=== PATIENT | male | born 1985 | race Caucasian/White ===

== ENCOUNTER 2016-09-30 09:32 | Emergency (ER) | payer BC ==
[~2016-09-30] VITALS: Ht 172.7 cm; Wt 90.9 kg
[2016-09-30 09:36] VITALS: TEMP 37.2; Ht 172.7 cm; Wt 90.9 kg
[2016-09-30] MEDS ORDERED: AMPICILLIN/SULBACTAM SOD INJ 3,000 MG in SODIUM CHLORIDE 0.9% 100ML 100 ML IV STA (10:10)
[2016-09-30] MEDS ORDERED: DiphenhydrAMINE HCL 50 MG/ML VIAL IV STA (10:26)
[2016-09-30] MEDS ORDERED: METHYLPREDNISOLONE 125 MG VIAL IV STA (10:26)
[2016-09-30 10:27] LABS: BASO % 0.8 %; BASO ABS # 0.06 K/uL (0-0.2); COMPLETE YES; EOS % 0.8 %; HEMATOCRIT 47.6 % (42-52); IG% 0.3 %; LYMPH % 22.1 %; MEAN CORPUSCULAR HEMOGLOBIN 29.9 pg (25-34); MEAN CORPUSCULAR HGB CONC 33.6 g/dl (32-36); MEAN PLATELET VOLUME 11.7 fL (7.4-10.4); MONO % 9.3 %; NEUT % 66.7 %; PLATELET COUNT 195 K/uL (130-400); RED BLOOD COUNT 5.35 M/uL (4.7-6.1); WHITE BLOOD COUNT 7.23 K/uL (4.8-10.8)
[2016-09-30] MEDS ORDERED: DiphenhydrAMINE HCL 50 MG/ML VIAL ONE (10:27)
[2016-09-30] MEDS ORDERED: METHYLPREDNISOLONE 125 MG VIAL ONE (10:28)
--- NOTE | 2016-09-30 10:28 | EMERGENCY ROOM VISIT NOTE ---
History Report prepared by Scribe: Kimberly Lester Under the Supervision of: Dr. Radha Enriquez D.O. First contact with patient: 09:49 Chief Complaint: NECK PAIN Stated Complaint: SWOLLEN TONGUE,NECK/JAW PAIN,REFERRED History of Present Illness The patient is a 31 year old male who presents to the Emergency Room with complaints of persistent neck, tongue and right sided facial swelling that started this morning upon waking. He states he woke up with his tongue, the right side of his face and neck feeling swollen and "tight". He rates his discomfort as a 3.5/10. He reports overnight he experienced "night sweats" and thought he may have had a fever, though he is afebrile here in the ED. He also complains of a rash on his face stating "whenever I'm sick, I get this". He reports he called his primary care doctors office this morning and was referred to the ED for further evaluation. The patient denies any history of dental infections. He admits his ears feel "a little weird". He denies any recent abdominal pain. He complains of increased and dark colored urine. Source of History: patient Onset: this morning upon waking Position: head (right sided face), tongue, neck Symptom Intensity: 3.5/10 Quality: other (swelling and "tightness") Timing: other (persistent) Associated Symptoms: + diaphoresis, + urinary symptoms (increased urination , dark colored urine), + rash (rash on face), No fevers, No abdominal pain Review of Systems See HPI for pertinent positives & negatives. A total of 10 systems reviewed and were otherwise negative. Past Medical & Surgical Medical Problems: (1) No significant past medical history Family History No significant family history stated. Social History Smoking Status: Never Smoker Smokeless Tobacco Use: No Alcohol Use: occasionally Drug Use: none Marital Status: Housing Status: lives with family Occupation Status: employed Current/Historical Medications No Active Prescriptions or Reported Meds Allergies Coded Allergies: No Known Allergies (Unverified , 09/13/15) Physical Exam Vital Signs Date Time Temp Pulse Resp B/P (MAP) Pulse Ox O2 Delivery O2 Flow Rate FiO2 09/30/16 10:59 93 16 155/93 99 Room Air 09/30/16 10:56 86 09/30/16 10:34 Room Air 7/29/17 09:36 37.2 70 16 130/79 96 Room Air Physical Exam General: The patient has a muffled "hot potato" voice and significant difficulty swallowing. HEENT: Head - normocephalic and atraumatic Pupils are equal, round, and reactive to light. Extraocular eye muscles are intact, and sclera are anicteric. Nose - moist nasal mucosa without discharge. Mouth - moist buccal mucosa. Significant edema to the right floor of the mouth, elevation of the right tongue. There is moderate pain with palpation underneath the tongue on the right. There is no tonsillar exudate or edema noted. Neck: Significant fullness in right submental region, anterior cervical lymphadenopathy. Supple; no JVD, nuchal rigidity. Heart: Tachycardic heart rate, regular rhythm. There is a normal S1 and S2 with no murmurs, clicks, or gallops appreciated. Lungs: Clear to auscultation bilaterally with no wheezes, rales, or rhonchi. Abdomen: Soft, completely nontender, nondistended, with good bowel sounds. There are no palpable pulsatile masses or hepatosplenomegaly. There is no guarding, rigidity, or rebound noted. Extremities: No evidence of cyanosis, clubbing, or edema. There are easily palpable peripheral pulses. Skin: Slight papular rash over the right side of the face and over the right nasolabial fold and mid forehead. Warm and dry with good turgor. Medical Decision & Procedures ER Provider Diagnostic Interpretation: Radiology results as stated below per my review and the radiologist's interpretation: CT OF THE NECK WITH CONTRAST CLINICAL HISTORY: Swollen tongue. Neck/jaw pain. Evaluate for Abdiel's angina. COMPARISON STUDY: No previous studies for comparison. TECHNIQUE: Axial images of the neck were obtained following intravenous injection of 93 cc Optiray 320 IV. FINDINGS: Visualized portions of the intracranial contents are unremarkable. Major vasculature of the neck is patent. No mucosal lesions are identified although these may be occult by CT. There is no fluid collection within the neck to suggest an abscess. The epiglottis is normal. Airway is patent. Lung apices are clear. Visualized skeletal structures are unremarkable. Mastoid air cells are clear. Visualized portions of the sinuses are clear. No periapical dental abscess is identified by CT. There is no soft tissue gas. The parotid and submandibular glands are unremarkable. IMPRESSION: No significant abnormality within the neck by CT. No abscess. Normal epiglottis. Patent airway. Electronically signed by: Esa Arciniega M.D. 09/30/2016 10:59 AM Laboratory Results 09/30/16 10:00 Red Blood Count 5.35, Mean Corpuscular Volume 89.0, Mean Corpuscular Hemoglobin 29.9, Mean Corpuscular Hemoglobin Concent 33.6, Mean Platelet Volume 11.7, Neutrophils (%) (Auto) 66.7, Lymphocytes (%) (Auto) 22.1, Monocytes (%) (Auto) 9.3, Eosinophils (%) (Auto) 0.8, Basophils (%) (Auto) 0.8, Neutrophils # (Auto) 4.82, Lymphocytes # (Auto) 1.60, Monocytes # (Auto) 0.67, Eosinophils # (Auto) 0.06, Basophils # (Auto) 0.06 09/30/16 10:00 Test 09/30/16 10:00 09/30/16 10:22 09/30/16 10:24 09/30/16 10:28 White Blood Count 7.23 K/uL (4.8-10.8) Red Blood Count 5.35 M/uL (4.7-6.1) Hemoglobin 16.0 g/dL (14.0-18.0) Hematocrit 47.6 % (42-52) Mean Corpuscular Volume 89.0 fL (80-100) Mean Corpuscular Hemoglobin 29.9 pg (25-34) Mean Corpuscular Hemoglobin Concent 33.6 g/dl (32-36) Platelet Count 195 K/uL (130-400) Mean Platelet Volume 11.7 fL (7.4-10.4) Neutrophils (%) (Auto) 66.7 % Lymphocytes (%) (Auto) 22.1 % Monocytes (%) (Auto) 9.3 % Eosinophils (%) (Auto) 0.8 % Basophils (%) (Auto) 0.8 % Neutrophils # (Auto) 4.82 K/uL (1.4-6.5) Lymphocytes # (Auto) 1.60 K/uL (1.2-3.4) Monocytes # (Auto) 0.67 K/uL (0.11-0.59) Eosinophils # (Auto) 0.06 K/uL (0-0.5) Basophils # (Auto) 0.06 K/uL (0-0.2) RDW Standard Deviation 46.2 fL (36.4-46.3) RDW Coefficient of Variation 14.2 % (11.5-14.5) Immature Granulocyte % (Auto) 0.3 % Immature Granulocyte # (Auto) 0.02 K/uL (0.00-0.02) Prothrombin Time 10.6 SECONDS (9.0-12.0) Prothromb Time International Ratio 1.0 (0.9-1.1) Activated Partial Thromboplast Time 25.7 SECONDS (21.0-31.0) Partial Thromboplastin Ratio 1.0 Est Creatinine Clear Calc Drug Dose 99.4 ml/min Estimated GFR () 94.1 Estimated GFR (Non- 81.2 BUN/Creatinine Ratio 10.3 (10-20) Calcium Level 8.8 mg/dl (8.5-10.1) Total Bilirubin 0.6 mg/dl (0.2-1) Aspartate Amino Transf (AST/SGOT) 20 U/L (15-37) Alanine Aminotransferase (ALT/SGPT) 36 U/L (12-78) Alkaline Phosphatase 51 U/L (45-117) Total Protein 7.2 gm/dl (6.4-8.2) Albumin 4.0 gm/dl (3.4-5.0) Globulin 3.2 gm/dl (2.5-4.0) Albumin/Globulin Ratio 1.3 (0.9-2) Bedside Glucose 78 mg/dl (70-99) Bedside Lactic Acid Venous 0.81 mmol/L (0.90-1.70) Bedside Hemoglobin 15.6 g/dl (14.0-18.0) Bedside Hematocrit 46 % (42-52) Bedside Sodium 142 mEq/L (135-144) Bedside Potassium 4.1 mEq/L (3.3-5.0) Bedside Chloride 103 mEq/L (101-112) Bedside Total CO2 27 mEq/l (24-31) Anion Gap 18.0 mmol/L (16-25) Bedside Blood Urea Nitrogen 12 mg/dl (7-18) Bedside Creatinine 1.2 mg/dl (0.6-1.3) Bedside Glucose (other) 84 mg/dl (70-99) Bedside Ionized Calcium (Jordan) 1.11 mmol/l (1.12-1.32) Laboratory results per my review. Medications Administered Medications (Trade) Dose Ordered Sig/Aliya Route Start Time Stop Time Status Last Admin Dose Admin Ampicillin Sodium/ Sulbactam Sodium 3000 mg/Sodium Chloride 108 ml @ 200 mls/hr NOW STAT IV 09/30/16 10:10 09/30/16 10:42 DC 09/30/16 10:30 200 MLS/HR Methylprednisolone Sodium Succinate (Solu-Medrol IV) 125 mg NOW STAT IV 09/30/16 10:26 09/30/16 10:28 DC 09/30/16 10:30 125 MG Diphenhydramine HCl (Benadryl Inj) 50 mg NOW STAT IV 09/30/16 10:26 09/30/16 10:28 DC 09/30/16 10:30 50 MG Procedure Ampicillin Sodium/Sulbactam Sodium 3000 mg/NSS IV, Benadryl IV, Solu-Medrol IV. ED Course 1002: Past medical records reviewed. The patient was evaluated in room B12. A complete history and physical exam was performed. A septic protocol was performed. I-STAT labs were performed. 1010: Ampicillin Sodium/Sulbactam Sodium 3000 mg/NSS 108 ml @ 200 mls/hr IV. 1018: I discussed the patients case with Dr. Matthews, [facility]. The patient will be further evaluated. 1025: I reevaluated the patient. He reports he was eating cottage cheese a few days ago when he scratched his tongue. He states he had a previous reaction to beer and afterwards underwent patch testing with an motion picture camera operator. His only known allergy is to shellfish. He reports he has undergone CT scans before and has never had a problem with IV contrast. I will administer Solu-Medrol and Benadryl with the CT contrast. 1026: Benadryl 50 mg IV, Solu-Medrol 125 mg IV. The patient went for CT scan as described above. 1048: I had a discussion with Dr. Matthews at the patient's bedside. 1102: I discussed the patients case with Dr. Matthews again. He recommends starting the patient on antibiotics and he will follow up with him in the office on Sunday. Medical Decision Blood Pressure Screening: Patient was found to have a slightly elevated blood pressure due to circumstances. I do not believe that the patient requires hypertension monitoring. The patient is a 31 year old male who presents to the ED with face, neck and tongue swelling. Differential diagnoses include: dental abscess, Abdiel's angina , retropharyngeal abscess and epiglottitis. Lab results show no leukocytosis, stable H&H, Lactic Acid is normal, renal function is normal and LFT's are normal. This is a 31-year-old male who describes dysphagia, pain to the right side of his tongue and floor of his mouth. After my initial evaluation of the patient, I was concerned about the possibility of Abdiel's angina. I contacted the ENT doc control board operator and sent the patient for CT scan. ENT arrived here in the emergency department and evaluated the patient. He recommended outpatient oral clindamycin and a significant prednisone taper. Consults Time Called: 1014 Consulting Physician: [facility] Returned Call: 1018 I discussed the patients case with [facility]. The patient will be further evaluated. Impression Primary Impression: Abscess, tongue Scribe Attestation The scribe's documentation has been prepared under my direction and personally reviewed by me in its entirety. I confirm that the note above accurately reflects all work, treatment, procedures, and medical decision making performed by me. Departure Information Dispostion Home / Self-Care Prescriptions No Active Prescriptions or Reported Meds Referrals No Doctor, Assigned (PCP) Patient Instructions My [facility] Additional Instructions Rest with your head elevated. Take steroids as directed. Clindamycin 4 times a day with food for 14 days If your symptoms worsen, return to the ER.
[2016-09-30] MEDS ORDERED: OPTIRAY 320 IV PRN (10:30)
[2016-09-30 10:36] LABS: BUN/CREATININE RATIO 10.3 (10-20); CALCIUM 8.8 mg/dl (8.5-10.1); CREATININE 1.2 mg/dl (0.60-1.40); POTASSIUM 4.4 mmol/L (3.5-5.1)
[2016-09-30 10:38] LABS: PROTHROMBIN TIME (PATIENT) 10.6 SECONDS (9.0-12.0)
[2016-09-30 10:39] LABS: ALB/GLOB RATIO 1.3 (0.9-2)
[2016-09-30 10:41] LABS: ISTAT CREATININE 1.2 mg/dl (0.6-1.3); ISTAT HEMOGLOBIN 15.6 g/dl (14.0-18.0); ISTAT IONIZED CALCIUM 1.11 mmol/l (1.12-1.32)
[2016-09-30 10:59] VITALS: BP 155/93; PULSE 93; O2SAT 99
--- NOTE | 2016-09-30 11:01 | DIAGNOSTIC IMAGING REPORT ---
CT OF THE NECK WITH CONTRAST CLINICAL HISTORY: Swollen tongue. Neck/jaw pain. Evaluate for Abdiel's angina. COMPARISON STUDY: No previous studies for comparison. TECHNIQUE: Axial images of the neck were obtained following intravenous injection of 93 cc Optiray 320 IV. FINDINGS: Visualized portions of the intracranial contents are unremarkable. Major vasculature of the neck is patent. No mucosal lesions are identified although these may be occult by CT. There is no fluid collection within the neck to suggest an abscess. The epiglottis is normal. Airway is patent. Lung apices are clear. Visualized skeletal structures are unremarkable. Mastoid air cells are clear. Visualized portions of the sinuses are clear. No periapical dental abscess is identified by CT. There is no soft tissue gas. The parotid and submandibular glands are unremarkable. IMPRESSION: No significant abnormality within the neck by CT. No abscess. Normal epiglottis. Patent airway. Electronically signed by: Esa Arcineiga M.D. 09/30/2016 10:59 AM Dictated Date/Time: 09/30/2016 10:50 AM
--- NOTE | 2016-09-30 11:34 | ENT CONSULTATION ---
DATE OF CONSULTATION: 09/30/2016 DATE OF CONSULTATION: 09/30/2016 I have been asked by Dr. Radha Enriquez to evaluate this patient in the Emergency Room with possible Abdiel's angina. HISTORY OF PRESENT ILLNESS: The patient is a 31-year-old male who presented to the [facility] Emergency Room this morning with complaints of right tongue pain, change in his voice, and neck tightness. He had some night sweats last night and thinks he might have had a fever, but he is afebrile here in the Emergency Room. The right side of the floor of mouth was swollen and Dr. Enriquez was concerned that the patient might have Abdiel angina. The patient denies any dental pain or history of dental problems. He denies any referred otalgia. He does have some mild odynophagia and dysphagia as well as a change in his voice. He denies any shortness of breath. ALLERGIES: No known drug allergies. MEDICATIONS: None. PAST MEDICAL HISTORY: None. PAST SURGICAL HISTORY: Status post wisdom teeth extraction. FAMILY HISTORY: Noncontributory. No bleeding disorders or malignant hyperthermia. SOCIAL HISTORY: The patient is . He lives with his and daughter. He denies any tobacco or illicit drug use. He drinks alcohol socially. REVIEW OF SYSTEMS: The patient has some pain underneath his right side of his tongue. He denies any referred otalgia. He has mild odynophagia and dysphagia. He has a change in his voice where it is muffled. He denies any shortness of breath, lightheadedness, dizziness, or chest pain. PHYSICAL EXAMINATION: GENERAL: This is a young adult white male in no acute distress who does have a muffled voice. External auditory canals and tympanic membranes are clear bilaterally. Nasal examination reveals a midline septum with no mucosal lesions or masses. Oral cavity and oropharyngeal examination reveals some swelling involving the right floor of mouth and tongue with a focal spot of erythema and tenderness to palpation consistent with a possible microabscess. Also, the right Arthur's duct is edematous with no palpable stone. 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 He has no pain along palpation of his right mandibular dentition. He has a widely patent oropharyngeal airway. His tongue is not retrodisplaced as in Abdiel's angina. He does have some tightness and fullness in the right submandibular region without any definitive lymphadenopathy or masses. There is no fluctuance involving the neck. PLAN: The patient's CT scan was reviewed. There is no radiology report yet, but my interpretation shows a possible small microabscess within the right tongue with some edema diffusely throughout the tongue, but to a mild to moderate degree. There is no neck lymphadenopathy or masses. His hypopharynx and larynx are normal on the CT scan as well. There is no airway compromise. IMPRESSION AND RECOMMENDATIONS: A 31-year-old male with a small right tongue infection/microabscess. Options including admission with IV antibiotics and IV steroids were recommended, but the patient wants to try to manage this on an outpatient basis. Also, a potential needle aspiration versus incision and drainage was discussed with the patient, but the patient would like to try oral antibiotics and steroids first. Therefore, I recommend clindamycin 300 mg 4 times a day for 2 weeks and a prednisone taper to consist of 40 mg p.o. b.i.d. for 2 days, followed by 30 mg b.i.d. for 2 days, followed by 20 mg b.i.d. for 2 days, followed by 10 mg b.i.d. for 2 days, followed by 10 mg daily for 2 days. I would like to see him back in my office on Sunday, but the patient should call sooner if he develops any worsening symptomatology or does not notice improvement. He was counseled on the possibility of Clostridium difficile infection with clindamycin. He should take the antibiotic on a full stomach and eat yogurt while you are on it. Since the patient refuses admission I will sign off on this consultation, but if you need any further assistance with this patient, please do not hesitate to contact me. DOMINGO
== END 2016-09-30 11:48 | disposition home or self-care (01) ==
LOC: C.EDB 09:34
DX: K14.0 Glossitis (principal)

== ENCOUNTER 2016-10-16 18:19 | Emergency (ER) | payer BC ==
[~2016-10-16] VITALS: Ht 172.7 cm; Wt 95.3 kg
[2016-10-16 18:22] VITALS: Ht 172.7 cm; Wt 95.3 kg
[2016-10-16] MEDS ORDERED: ACETAMINOPHEN 500 MG TAB PO STA (18:38)
[2016-10-16] MEDS ORDERED: SODIUM CHLORIDE 0.9% 1000ML 1,000 ML IV ONE (18:38)
--- NOTE | 2016-10-16 18:52 | EMERGENCY ROOM VISIT NOTE ---
History Report prepared by Celina: Augusta Sarabia Under the Supervision of: Dr. Irving Tao M.D. First contact with patient: 18:32 Chief Complaint: ILLNESS Stated Complaint: SIRS History of Present Illness The patient is a 31 year old male who presents to the Emergency Room with complaints of persistent fever starting last night. The patient had a tongue abscess 3 weeks ago and had been on clindamycin and prednisone. He finished the antibiotics around 1 week ago. He had had diarrhea which was improving prior to worsening again yesterday. He also started to feel feverish yesterday. He took some ibuprofen today. He had difficulty sleeping last night. He has headache, burning in his eye, epigastric abdominal pain, flank pain, chills, diaphoresis, and body aches. His jaw was sore when he woke up this morning. He notes that his urine was dark and malodorous today. He denies any rash, cough, stuffy nose , or sore throat. His tongue is improved. He denies any history of kidney problems or diabetes. He has a history of rhabdomyolysis. He did exercise yesterday. He denies any sick contacts. He does spend time outside in wooded areas, but has not found any ticks. Source of History: patient Onset: last night Position: other (global) Quality: other (fever) Timing: other (persistent) Associated Symptoms: + chills, + headache, + diaphoresis, + abdominal pain, + diarrhea, No sorethroat, No cough, No rash Note: Pt reports eye burning, flank pain, body aches, sore jaw, dark and malodorous urine. Pt denies stuffy nose. Review of Systems See HPI for pertinent positives & negatives. A total of 10 systems reviewed and were otherwise negative. Past Medical & Surgical Medical Problems: (1) Abscess of tongue (2) No significant past medical history Family History Cancer Diabetes mellitus FHx: gallbladder disease FHx: lung disease Heart disease Hypertension Kidney disease Kidney stones Social History Smoking Status: Never Smoker Alcohol Use: occasionally Drug Use: none Marital Status: Housing Status: lives with family Occupation Status: employed Current/Historical Medications No Active Prescriptions or Reported Meds Allergies Coded Allergies: Iodine (Verified Allergy, Unknown, Unknown, 10/16/16) Informed following allergy testing Shellfish (Verified Allergy, Unknown, Unknown, 10/16/16) Informed following allergy testing Physical Exam Vital Signs Date Time Temp Pulse Resp B/P (MAP) Pulse Ox O2 Delivery O2 Flow Rate FiO2 10/16/16 19:50 98 18 150/88 97 Room Air 10/16/16 18:51 Room Air 10/16/16 18:22 37.6 102 26 151/92 95 Room Air Physical Exam GENERAL: Patient is in no acute distress. HEENT: No acute trauma, normocephalic atraumatic, mucous membranes moist, no nasal congestion, no scleral icterus, no throat erythema or exudate. NECK: No stridor, no adenopathy, no meningismus, trachea is midline. LUNGS: Clear to auscultation bilaterally, no wheeze, no rhonchi, breath sounds equal. HEART: Tachycardic with a regular rhythm, no murmurs. ABDOMEN: Soft, nontender, bowel sounds positive, no hernias, no peritonitis. EXTREMITIES: No cyanosis or edema, full range of motion of all the joints without pain or difficulty, no signs for acute trauma. NEUROLOGIC: Oriented x 3, no acute motor or sensory deficits, no focal weakness. SKIN: No rash, no jaundice, no diaphoresis. Medical Decision & Procedures ER Provider Diagnostic Interpretation: X-ray results as stated below per interpretation by me and the radiologist: CHEST ONE VIEW PORTABLE CLINICAL HISTORY: Sepsis COMPARISON STUDY: No previous studies for comparison. FINDINGS: The cardiac and mediastinal contours are normal. There is no evidence of focal pulmonary consolidation. There is no evidence of failure. No pleural effusions are visualized.[ IMPRESSION: No active disease in the chest. Electronically signed by: Rafa Rice M.D. 10/16/2016 7:21 PM Dictated Date/Time: 10/16/2016 7:21 PM Laboratory Results 10/16/16 18:58 Red Blood Count 4.86, Mean Corpuscular Volume 89.7, Mean Corpuscular Hemoglobin 29.8, Mean Corpuscular Hemoglobin Concent 33.3, Mean Platelet Volume 11.1, Neutrophils (%) (Auto) 62.9, Lymphocytes (%) (Auto) 17.2, Monocytes (%) (Auto) 18.1, Eosinophils (%) (Auto) 0.6, Basophils (%) (Auto) 0.6, Neutrophils # (Auto ) 2.20, Lymphocytes # (Auto) 0.60, Monocytes # (Auto) 0.63, Eosinophils # (Auto ) 0.02, Basophils # (Auto) 0.02 10/16/16 18:58 Test 10/16/16 18:42 10/16/16 18:58 10/16/16 19:05 Urine Color YELLOW Urine Appearance CLOUDY (CLEAR) Urine pH 7.0 (4.5-7.5) Urine Specific [place] 1.023 (1.000-1.030) Urine Protein TRACE (NEG) Urine Glucose (UA) NEG (NEG) Urine Ketones NEG (NEG) Urine Occult Blood NEG (NEG) Urine Nitrite NEG (NEG) Urine Bilirubin NEG (NEG) Urine Urobilinogen NEG (NEG) Urine Leukocyte Esterase NEG (NEG) Urine WBC (Auto) 1-5 /hpf (0-5) Urine RBC (Auto) 0-4 /hpf (0-4) Urine Hyaline Casts (Auto) 0 /lpf (0-5) Urine Epithelial Cells (Auto) 10-20 /lpf (0-5) Urine Bacteria (Auto) NEG (NEG) White Blood Count 3.49 K/uL (4.8-10.8) Red Blood Count 4.86 M/uL (4.7-6.1) Hemoglobin 14.5 g/dL (14.0-18.0) Hematocrit 43.6 % (42-52) Mean Corpuscular Volume 89.7 fL (80-100) Mean Corpuscular Hemoglobin 29.8 pg (25-34) Mean Corpuscular Hemoglobin Concent 33.3 g/dl (32-36) Platelet Count 123 K/uL (130-400) Mean Platelet Volume 11.1 fL (7.4-10.4) Neutrophils (%) (Auto) 62.9 % Lymphocytes (%) (Auto) 17.2 % Monocytes (%) (Auto) 18.1 % Eosinophils (%) (Auto) 0.6 % Basophils (%) (Auto) 0.6 % Neutrophils # (Auto) 2.20 K/uL (1.4-6.5) Lymphocytes # (Auto) 0.60 K/uL (1.2-3.4) Monocytes # (Auto) 0.63 K/uL (0.11-0.59) Eosinophils # (Auto) 0.02 K/uL (0-0.5) Basophils # (Auto) 0.02 K/uL (0-0.2) RDW Standard Deviation 46.0 fL (36.4-46.3) RDW Coefficient of Variation 14.0 % (11.5-14.5) Immature Granulocyte % (Auto) 0.6 % Immature Granulocyte # (Auto) 0.02 K/uL (0.00-0.02) Prothrombin Time 10.8 SECONDS (9.0-12.0) Prothromb Time International Ratio 1.0 (0.9-1.1) Activated Partial Thromboplast Time 27.6 SECONDS (21.0-31.0) Partial Thromboplastin Ratio 1.1 Anion Gap 8.0 mmol/L (3-11) Est Creatinine Clear Calc Drug Dose 87.2 ml/min Estimated GFR () 78.1 Estimated GFR (Non- 67.4 BUN/Creatinine Ratio 9.5 (10-20) Calcium Level 8.4 mg/dl (8.5-10.1) Total Bilirubin 0.4 mg/dl (0.2-1) Aspartate Amino Transf (AST/SGOT) 52 U/L (15-37) Alanine Aminotransferase (ALT/SGPT) 81 U/L (12-78) Alkaline Phosphatase 45 U/L (45-117) Total Creatine Kinase 746 U/L (39-308) Total Protein 6.7 gm/dl (6.4-8.2) Albumin 3.3 gm/dl (3.4-5.0) Globulin 3.4 gm/dl (2.5-4.0) Albumin/Globulin Ratio 1.0 (0.9-2) Chemistry Specimen Hemolysis Lyme Disease IgG Antibody NEG (NEG) Lyme Disease IgM Antibody NEG (NEG) Bedside Lactic Acid Venous 1.06 mmol/L (0.90-1.70) Laboratory results reviewed by me. Medications Administered Medications (Trade) Dose Ordered Sig/Aliya Route Start Time Stop Time Status Last Admin Dose Admin Sodium Chloride 1,000 ml @ 999 mls/hr Q1H1M ONCE IV 10/16/16 18:38 10/16/16 19:38 DC 10/16/16 18:58 999 MLS/HR Acetaminophen (Tylenol Tab) 1,000 mg NOW STAT PO 10/16/16 18:38 10/16/16 18:40 DC 10/16/16 18:58 1,000 MG ED Course 1832: The patient was evaluated in room C9. A complete history and physical exam was performed. 1837: Acetaminophen 1000 mg PO, NSS 1000 ml @ 999 mls/hr IV. 2015: I reevaluated the patient. He has not had a bowel movement yet. 2057: I reevaluated the patient. He has been unable to provide a stool sample. I discussed results and discharge instructions: he verbalized understanding and agreement. The patient is ready for discharge. Medical Decision Differential diagnoses considered include C diff colitis, viral illness, dehydration, electrolyte imbalance, pneumonia, UTI, cellulitis, lyme disease, sepsis and/or bacteremia. There is no leukocytosis, in fact, the white count is low and suggestive of a viral illness. Platelet count slightly low as well also consistent with a viral illness. There is no anemia. No significant electrolyte abnormality or kidney failure. There were a few very mild liver enzyme elevations possibly consistent with a viral illness. Urinalysis does not show infection. Lyme disease testing is negative. Lactic acid level is not elevated making sepsis less likely. Chest film does not show pneumonia or CHF. On exam, there is no pharyngitis, no cellulitis. No signs of meningitis. Blood cultures were ordered and are pending. The patient could not provide a stool sample for C. difficile testing. The patient received IV saline, oral Tylenol. He has done well. He would like to be discharged home, I think this is reasonable. The patient can bring in a stool sample for C. difficile testing with his next bowel movement. He can be called with the results. The patient was advised to follow with his doctors in a few days for a recheck. He should return here for persistent or worsening symptoms. At this point, the cause for his presentation is unclear but his workup suggests a viral process. Impression Primary Impression: Fever Additional Impressions: Body aches Diarrhea Scribe Attestation The scribe's documentation has been prepared under my direction and personally reviewed by me in its entirety. I confirm that the note above accurately reflects all work, treatment, procedures, and medical decision making performed by me. Departure Information Dispostion Home / Self-Care Prescriptions No Active Prescriptions or Reported Meds Referrals No Doctor, Assigned (PCP) Forms HOME CARE DOCUMENTATION FORM, IMPORTANT VISIT INFORMATION, WORK / SCHOOL INSTRUCTIONS Patient Instructions My [facility] Additional Instructions bring in stool sample when able fluids rest tylenol and or motrin for fever and aches see your doctor in 1-2 days for a recheck call here for stool results---[phone] we will call with any positive blood culture results return if worsening as we discussed Problem Qualifiers
--- NOTE | 2016-10-16 19:23 | DIAGNOSTIC IMAGING REPORT ---
CHEST ONE VIEW PORTABLE CLINICAL HISTORY: Sepsis COMPARISON STUDY: No previous studies for comparison. FINDINGS: The cardiac and mediastinal contours are normal. There is no evidence of focal pulmonary consolidation. There is no evidence of failure. No pleural effusions are visualized.[ IMPRESSION: No active disease in the chest. Electronically signed by: Rafa Rice M.D. 10/16/2016 7:21 PM Dictated Date/Time: 10/16/2016 7:21 PM
[2016-10-16 19:27] LABS: BASO % 0.6 %; BASO ABS # 0.02 K/uL (0-0.2); COMPLETE YES; EOS % 0.6 %; HEMATOCRIT 43.6 % (42-52); IG% 0.6 %; LYMPH % 17.2 %; MEAN CELL VOLUME 89.7 fL (80-100); MEAN CORPUSCULAR HEMOGLOBIN 29.8 pg (25-34); MEAN CORPUSCULAR HGB CONC 33.3 g/dl (32-36); MEAN PLATELET VOLUME 11.1 fL (7.4-10.4); MONO % 18.1 %; NEUT % 62.9 %; PLATELET COUNT 123 K/uL (130-400); RED BLOOD COUNT 4.86 M/uL (4.7-6.1); WHITE BLOOD COUNT 3.49 K/uL (4.8-10.8)
[2016-10-16 19:30] LABS: PARTIAL THROMBOPLASTIN RATIO 1.1; PROTHROMBIN TIME (PATIENT) 10.8 SECONDS (9.0-12.0)
[2016-10-16 19:35] LABS: BUN/CREATININE RATIO 9.5 (10-20); CALCIUM 8.4 mg/dl (8.5-10.1); CREATININE 1.4 mg/dl (0.60-1.40)
[2016-10-16 19:40] LABS: URINE APPEARANCE CLOUDY (CLEAR); URINE BILIRUBIN NEG (NEG); URINE COLOR YELLOW; URINE NITRITE NEG (NEG); URINE SPECIFIC GRAVITY 1.023 (1.000-1.030); UROBILINOGEN NEG (NEG); ZZUR CULT IF INDIC CLEAN CATCH NO
[2016-10-16 19:42] LABS: MANUAL MICROSCOPIC REQUIRED? NO; REVIEW REQ? NO
[2016-10-16 20:17] LABS: LYME DISEASE AB IGG NEG (NEG); LYME DISEASE AB IGM NEG (NEG)
[2016-10-16 21:15] VITALS: BP 145/87; PULSE 90; TEMP 37.4; O2SAT 97
== END 2016-10-16 21:18 | disposition home or self-care (01) ==
LOC: C.EDB 18:20 → C.EDC 21:18
DX: R50.9 Fever, unspecified (principal); M79.1 Myalgia; R19.7 Diarrhea, unspecified; Z91.018 Allergy to other foods; Z91.09 Other allergy status, other than to drugs and biological substances; Z80.9 Family history of malignant neoplasm, unspecified; Z83.3 Family history of diabetes mellitus; Z83.79 Family history of other diseases of the digestive system; Z82.49 Family history of ischemic heart disease and other diseases of the circulatory system; Z84.1 Family history of disorders of kidney and ureter

== ENCOUNTER → 2016-10-17 | Outpatient (CLI) | payer BC | END | disposition home or self-care (01) | LOC: C.LABSPEC 12:13 | PROVIDERS: ATTEND Emergency Medicine | DX: R19.7 Diarrhea, unspecified (principal) ==

== ENCOUNTER → 2016-10-19 | Outpatient (CLI) | payer BC ==
[2016-10-19 17:42] LABS: BASO % 0.9 %; BASO ABS # 0.03 K/uL (0-0.2); EOS % 1.5 %; HEMATOCRIT 44.8 % (42-52); IG% 0.3 %; LYMPH % 45.7 %; MEAN CELL VOLUME 89.8 fL (80-100); MEAN CORPUSCULAR HEMOGLOBIN 30.5 pg (25-34); MEAN PLATELET VOLUME 11.4 fL (7.4-10.4); MONO % 16.5 %; NEUT % 35.1 %; PLATELET COUNT 130 K/uL (130-400); RED BLOOD COUNT 4.99 M/uL (4.7-6.1); WHITE BLOOD COUNT 3.28 K/uL (4.8-10.8)
[2016-10-19 17:43] LABS: COMPLETE YES; MEAN CORPUSCULAR HGB CONC 33.9 g/dl (32-36)
[2016-10-19 18:58] LABS: ALKALINE PHOSPHATASE 42 U/L (45-117); ALT/SGPT 63 U/L (12-78); AST/SGOT 30 U/L (15-37); BLOOD UREA NITROGEN 19 mg/dl (7-18); BUN/CREATININE RATIO 17.5 (10-20); CALCIUM 8.8 mg/dl (8.5-10.1); CARBON DIOXIDE 31 mmol/L (21-32); CHLORIDE 105 mmol/L (98-107); GLUCOSE 80 mg/dl (70-99); POTASSIUM 3.9 mmol/L (3.5-5.1); SODIUM 140 mmol/L (136-145)
== END | disposition home or self-care (01) ==
LOC: C.LAB1850 16:43
PROVIDERS: ATTEND Student in an Organized Health Care Education/Training Program
DX: D72.819 Decreased white blood cell count, unspecified (principal); K14.0 Glossitis; J02.9 Acute pharyngitis, unspecified

== ENCOUNTER → 2016-11-17 | Outpatient (CLI) | payer BC ==
--- NOTE | 2016-11-17 07:36 | DIAGNOSTIC IMAGING REPORT ---
ABDOMEN LIMITED (US) HISTORY: Pain. Nodule. LT UPPER QUAD NODES. COMPARISON: None. FINDINGS: 3 anterior abdominal wall lipomas are present. These are echogenic. There is a subcutaneous in location. These measure 1.6, 2.5, and 2.2 cm at maximum diameter respectively. IMPRESSION: Palpable area of nodularity appears represent several small lipomas The above report was generated using voice recognition software. It may contain grammatical, syntax or spelling errors. Electronically signed by: [place] M.D. 11/17/2016 7:34 AM Dictated Date/Time: 11/17/2016 7:33 AM
== END | disposition home or self-care (01) ==
LOC: C.ULTR 06:39
PROVIDERS: ATTEND Student in an Organized Health Care Education/Training Program
DX: D17.9 Benign lipomatous neoplasm, unspecified (principal)